=== PATIENT | male | born 1960 | race Two or more races ===

== ENCOUNTER 2022-01-06 16:01 | Emergency (ER) | payer MEDICAID ==
[~2022-01-06] VITALS: Ht 188 cm; Wt 127.0 kg
[2022-01-06 16:55] LABS: BASOPHILS # (AUTO) 0.1 K/uL (0.0-0.2); BASOPHILS % (AUTO) 0.8 % (0.0-2.0); EOSINOPHILS % (AUTO) 2.1 % (0.0-6.0); HEMATOCRIT 42 % (39-51); HEMOGLOBIN 13.8 g/dL (13.5-17.5); LYMPHOCYTES # (AUTO) 1.3 K/uL (0.8-4.8); LYMPHOCYTES % (AUTO) 15.3 % (20.0-44.0); MEAN CORPUSCULAR HGB CONC 33 g/dl (31.0-36.0); MEAN CORPUSCULAR VOLUME 82 fL (80-96); MONOCYTES # (AUTO) 0.6 K/uL (0.1-1.30); NEUTROPHILS # (AUTO) 6.5 K/uL (1.8-8.9); NEUTROPHILS % (AUTO) 74.8 % (43.0-81.0); PLATELET COUNT (AUTO) 191 K/uL (150-450); RED BLOOD CELL COUNT(AUTO) 5.05 MIL/uL (4.5-6.0); WHITE BLOOD COUNT (AUTO) 8.6 K/uL (4.3-11.0)
[2022-01-06] MEDS ORDERED: BENA20TA9 PO (17:13)
[2022-01-06] MEDS ORDERED: QUET25TA PO (17:13)
[2022-01-06] MEDS ORDERED: AMLO-213 PO (17:13)
[2022-01-06] MEDS ORDERED: FLUO20CA42 PO (17:13)
[2022-01-06] MEDS ORDERED: PIOG15TA8 PO (17:13)
[2022-01-06] MEDS ORDERED: ASPI-1420 PO (17:13)
[2022-01-06] MEDS ORDERED: BENA40TA8 PO (17:13)
[2022-01-06] MEDS ORDERED: DONE10TA44 PO (17:13)
[2022-01-06] MEDS ORDERED: MEMA10TA56 PO (17:13)
[2022-01-06] MEDS ORDERED: METF-881 PO (17:14)
[2022-01-06 17:18] LABS: ALANINE AMINOTRANSFERASE 37 U/L (12-78); ALBUMIN 3.8 g/dL (3.4-5.0); ALCOHOL, BLOOD < 3 mg/dL (0-0); ALKALINE PHOSPHATASE 130 U/L (46-116); ASPARTATE AMINOTRANSFERASE 20 U/L (15-37); BILIRUBIN,DIRECT 0.1 mg/dL (0.0-0.2); BILIRUBIN,TOTAL 0.4 mg/dL (0.2-1.0); CALCIUM, SERUM 8.9 mg/dL (8.5-10.1); CARBON DIOXIDE 25 mmol/L (21-32); CHLORIDE 95 mmol/L (98-107); CREATININE 1.6 mg/dL (0.6-1.3); POTASSIUM 4.4 mmol/L (3.5-5.1); SODIUM SERUM 130 mmol/L (136-145); TOTAL PROTEIN, SERUM 8.4 g/dL (6.4-8.2); UREA NITROGEN, BLOOD 22 mg/dL (7-18)
--- NOTE | 2022-01-06 17:19 | NUR ---
LAB CALLED BLOOD SUGAR IS 475 DR[address] CAMPOS INFORMED.
[2022-01-06 17:21] LABS: ACETAMINOPHEN 0 ug/ml (10-30); GLUCOSE 475 mg/dL (74-106)
--- NOTE | 2022-01-06 18:39 | NUR ---
URINE SAMPLE COLLECTED AND SENT TO LAB
--- NOTE | 2022-01-06 18:46 | NUR ---
RAPID COVID SWAB DONE AND SENT TO LAB
--- NOTE | 2022-01-06 19:02 | NUR ---
called [facility] and spoke to transfer center and will call the account relationship manager MD Dr. Bhardwaj. Awaiting for md to call back.
[2022-01-06] MEDS ORDERED: INSULIN REGULAR, HUMAN 100 UNIT/ML 3 ML VIAL SQ ONE (20:00)
[2022-01-06] MEDS ORDERED: IV NS 0.9% 1,000 ML IV ONE (20:00)
[2022-01-06 20:15] LABS: BILIRUBIN,URINE NEGATIVE (NEGATIVE); COLOR,URINE YELLOW (YELLOW); LEUKOCYTE ESTERASE ,URINE NEGATIVE (NEGATIVE); NITRITE, URINE NEGATIVE (NEGATIVE); PH,URINE 5.5 (5.0-8.0); PROTEIN,URINE NEGATIVE (NEGATIVE); UGLUCOSE >=1000 mg/dL (NEGATIVE); UROBILINOGEN,URINE 0.2 EU/dL (0.2)
[2022-01-06] MEDS ORDERED: INSULIN REGULAR, HUMAN 100 UNIT/ML 10 ML VIAL ONE (20:17)
[2022-01-06 20:31] LABS: RBC,URINE 0-2 /HPF (0-2); WBC,URINE 0-2 /HPF (0-3)
[2022-01-06 20:32] LABS: SQUAMOUS EPITHELIAL CELL,UR 0-2 /HPF (None Seen)
--- NOTE | 2022-01-07 03:11 | NUR ---
PT SLEEPING IN BED. RESPIRATIONS EVEN AND NON LABORED. PT NOT IN ACUTE DISTRESS AT THIS TIME. SAFETY MEASURES IN PLACE.
--- NOTE | 2022-01-07 08:00 | NUR ---
NELY WEIR NP AT [facility] [phone]
--- NOTE | 2022-01-07 08:08 | NUR ---
PATIENT IN BED ASLEEP, EASILY AROUSABLE BY VOICE. HOOKED TO MONITOR. WILL CONTINUE TO MONITOR ACCORDINGLY.
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
--- NOTE | 2022-01-07 14:55 | NUR ---
FOOD TRAY PROVIDED TO THE PATIENT, TOLERATING WELL.
--- NOTE | 2022-01-07 15:18 | NUR ---
RESOURCES FROM REUBEN (MIGUELINA) PROVIDED TO PATIENT'S DTR AND .
--- NOTE | 2022-01-07 15:18 | NUR ---
IV removed. Catheter intact and site benign. Pressure and 4x4 applied to site. No bleeding noted.
[2022-01-07 15:20] VITALS: BP 126/73
--- NOTE | 2022-01-07 15:20 | NUR ---
TAMARA BUCIO [phone] AND SHELIA BUCIO DAUGHTER [phone] PICKED UP PATIENT IN STABLE CONDITION. ALL BELONGINGS BROUGHT WITH THE PATIENT. RESOURCES GIVEN TO DAUGHTER.
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
== END 2022-01-07 15:21 | disposition home or self-care (01) ==
LOC: ER 16:05
DX: F03.90 Unspecified dementia, unspecified severity, without behavioral disturbance, psychotic disturbance, mood disturbance, and anxiety (principal); I10 Essential (primary) hypertension; Z79.82 Long term (current) use of aspirin; Z79.899 Other long term (current) drug therapy; Z20.822 Contact with and (suspected) exposure to COVID-19; E11.65 Type 2 diabetes mellitus with hyperglycemia; N28.9 Disorder of kidney and ureter, unspecified; Z79.84 Long term (current) use of oral hypoglycemic drugs
CPT/HCPCS: 99285; 96372; 96360; 85025; 80048; 80076; 81001; 36415; 82962 ×2; 87426; 80143; 80320; 80307; J1815; J7030; C9803; G0480